=== PATIENT | female | born 1960 | race Caucasian/White ===

== ENCOUNTER → 2016-09-04 | Outpatient (CLI) | payer BC ==
[~2016-09-04] MED LIST: ALL DAY ALLERGY10 M3 PO; BACITRACIN30 GM TOP; CATAPRES-TTS-20.2 M1 EXT; CATAPRES-TTS-20.2 MG EXT; CELEXA PO; CELEXA20 MG PO; CLONIDINE PO; EFFEXOR PO; HYDROXYZINE HCL25 M1 PO; LODINE PO; METOPROLOL SUCC50 MG PO; PRINIVIL5 MG PO; PROTONIX PO; SIMVASTATIN20 MG PO; SKELAXIN PO; TEMAZEPAM PO; TRIAMTERENE/HCT1 TA3 PO
--- NOTE | ~2016-09-04 | MR175 ---
[facility] A Service of [facility] RADIOLOGY TEXT RESULTS PATIENT: GOOD HERNANDEZ LOCATION: [facility] : 62 UNIT #: [id number] AGE: [address]: LETY AGUIRRE MD SEX: F ORDER DR: [id number] [address] [address] [id number] O MR#: [id number] Acc #: [id number] NAME: GOOD HERNANDEZ : 1960 SEX: F STUDY DATE/TIME: 09/04/2016 10:22 UNIT: [facility] ROOM: STUDY DESCRIPTION: MR Thoracic WWo Contrast Attending Physician: Lety Aguirre Referring Physician: Lety Aguirre Ordering Physician: [id number] [id number] Kaylin Aguirre Primary Care Physician: Kim Vasquez M.D. MRI CENTER REPORT This report is preliminary unless electronic signature is present. EXAM Thoracic spine MRI with and without contrast. 09/04/2016 COMPARISON None. HISTORY Mid back pain and stiffness for 6 months. FINDINGS There is mild dextroscoliosis but no anterolisthesis or retrolisthesis. There is some mild discogenic degenerative marrow signal changes but no evidence of acute marrow infiltration or replacement. Cord signal is normal. There are areas of very slight canal narrowing but no true canal stenosis and no evidence is seen of cord compression at any level. Post contrast images show no suspicious abnormal enhancement in the canal, cord or spinal column. Modest thoracic spinal degenerative change without substantial canal stenosis at any level. No cord compression. No acute findings. Dictated by... Kyler Valadez M.D. THIS IS AN ELECTRONICALLY VERIFIED REPORT Kyler Valadez M.D. at 09/07/2016 10:32 AM THERESE/nia TD: 09/05/2016 14:26 JOB #: [id number] [facility] A Service [facility] RADIOLOGY TEXT RESULTS PATIENT: GOOD HERNANDEZ LOCATION: [facility] #: [id number] : 62 UNIT #: [id number] AGE: [address]: LETY AGUIRRE MD SEX: F ORDER DR: MRI CENTER REPORT Page 1 of 1
--- NOTE | ~2016-09-04 | MY9 ---
[facility] A Service of [facility] RADIOLOGY TEXT RESULTS PATIENT: GOOD HERNANDEZ LOCATION: [facility] : 62 UNIT #: [id number] AGE: [address]: LETY AGUIRRE MD SEX: F ORDER DR: [id number] [address] [address] [id number] O MR#: [id number] Acc #: [id number] NAME: GOOD HERNANDEZ : 1960 SEX: F STUDY DATE/TIME: 09/04/2016 10:33 UNIT: [facility] ROOM: STUDY DESCRIPTION: MY Mammogram Screen Uni Dig Lt Attending Physician: Nevaeh Aguirre M.D. Referring Physician: Nevaeh Aguirre M.D. Ordering Physician: Nevaeh Aguirre M.D. Primary Care Physician: Kim Vasquez M.D. MEDICAL IMAGING REPORT This report is preliminary unless electronic signature is present. EXAM Unilateral left digital screening mammogram, 09/04/2016, [facility]. HISTORY 56-year-old woman. Previous right mastectomy, age 40, with TRAM flap reconstruction 2000. Personal and family history, 2 maternal cousins. COMPARISON Outside mammogram, 07/11/2015. FINDINGS Digital imaging of the left breast was completed utilizing screening protocol. 4 views are recorded. Breast parenchyma is fatty replaced. There is no interval occurring mass. There are no suspicious microcalcifications and no architectural deformity. IMPRESSION Negative unilateral left mammogram. Status post right mastectomy. Annual screening recommended. Patients over the age of 40 are entered into a reminder system with target due date for the next mammogram. A result letter will also be sent to the patient. BIRADS: 1 Negative. Dictated by... Joshua Argueta M.D. THIS IS AN ELECTRONICALLY VERIFIED REPORT Joshua Argueta M.D. at 09/10/2016 12:29 PM JBB/pc [facility] A Service of [facility] RADIOLOGY TEXT RESULTS PATIENT: GOOD HERNANDEZ LOCATION: [facility] : 62 UNIT #: [id number] AGE: [address]: LETY AGUIRRE MD SEX: F ORDER DR: TD: 09/10/2016 11:44 JOB #: [id number] MEDICAL IMAGING REPORT Page 1 of 1
== END | disposition home or self-care (01) ==
LOC: SMAM 09:40
DX: Z12.31 Encounter for screening mammogram for malignant neoplasm of breast (principal); M54.6 Pain in thoracic spine; Z90.11 Acquired absence of right breast and nipple; Z80.3 Family history of malignant neoplasm of breast; Z85.3 Personal history of malignant neoplasm of breast
CPT/HCPCS: 72157; A9581; G0202